=== PATIENT | male | born 1970 | race African-American/Black ===

== ENCOUNTER 2018-05-24 08:47 | Emergency (ER) | payer MEDICAID, OTHER ==
--- NOTE | 2018-05-24 09:34 | ED ---
Abdominal Pain/Male - HPI Summary HPI Summary: Patient is a 47-year-old male who presents emergency department for right upper quadrant abdominal pain times several days. Patient does not recall any specific injuries or falls but states he does do a lot of lifting and twisting at work. He states pain feels like a strained muscle. 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 Patient notes pain is worse with coughing, sitting forward and laughing. He denies recent illness, fever, cough, vomiting, diarrhea, urinary symptoms. He denies past medical history. Symptoms are moderate in severity. - History of Current Complaint Chief Complaint: EDGeneral Stated Complaint: RIGHT FLANK PAIN, TOOTH,HEADACHE Time Seen by Provider: 05/24/18 09:02 Hx Obtained From: Patient Pain Intensity: 2 - Allergies/Home Medications Allergies/Adverse Reactions: Allergies Allergy/AdvReac Type Severity Reaction Status Date / Time No Known Allergies Allergy Verified 05/24/18 08:58 Home Medications: Home Medications NK [No Home Medications Reported] 05/24/18 [History Confirmed 05/24/18] PMH/Surg Hx/FS Hx/Imm Hx Previously Healthy: Yes Infectious Disease History: No Infectious Disease History: Denies: Traveled Outside the [place] in Last 30 Days - Family History Known Family History: Positive: Non-Contributory - Social History Occupation: Employed Full-time Lives: Alone Alcohol Use: Weekly Substance Use Type: Reports: Marijuana Substance Use Comment - Amount & Last Used: daily Smoking Status (MU): Light Every Day Tobacco Smoker Review of Systems Constitutional: Negative Negative: Fever, Chills Cardiovascular: Negative Negative: Palpitations, Chest Pain Respiratory: Negative Negative: Shortness Of Breath, Cough Positive: Abdominal Pain, Nausea. Negative: Vomiting, Diarrhea Genitourinary: Negative Negative: dysuria, flank pain Neurological: Negative All Other Systems Reviewed And Are Negative: Yes Physical Exam Triage Information Reviewed: Yes Vital Signs On Initial Exam: Initial Vitals Temp Pulse Resp BP Pulse Ox 99.1 F 87 16 152/103 96 05/24/18 08:54 05/24/18 08:54 05/24/18 08:54 05/24/18 08:54 05/24/18 08:54 Vital Signs Reviewed: Yes Appearance: Positive: Well-Appearing - Pt. lying in bed in NAD. Skin: Positive: Warm, Dry Head/Face: Positive: Normal Head/Face Inspection Eyes: Positive: Normal, EOMI Neck: Positive: Supple Respiratory/Lung Sounds: Positive: Clear to Auscultation, Breath Sounds Present. Negative: Rales, Rhonchi, Wheezes Cardiovascular: Positive: Normal, RRR Abdomen Description: Positive: Other: - Abd. is soft with marked tenderness to RUQ with positive mckeon sign. No CVA tenderness. Neurological: Positive: Normal, CN Intact II-III Psychiatric: Positive: Affect/Mood Appropriate Diagnostics - Vital Signs Vital Signs Temp Pulse Resp BP Pulse Ox 05/24/18 08:54 99.1 F 87 16 152/103 96 - Laboratory Result Diagrams: 05/24/18 09:46 05/24/18 09:46 Lab Statement: Any lab studies that have been ordered have been reviewed, and results considered in the medical decision making process. Abdominal Pain Male Course/Dx - Course Course Of Treatment: Review with tenderness. Concern for cholelithiasis/ cholecystitis. Basic labs and ultrasound ordered. Patient is given a dose of Toradol for pain. Blood work and urinalysis are unremarkable. Gallbladder ultrasound is negative for acute findings, reading per radiology. On reexamination patient is sleeping comfortably. Results were discussed. Suspect pain is muscular in nature. Advised to apply warm compresses. Recommend 600 mg I Profen 3 times a day times one week. Patient to call the care [facility] clinic to schedule close follow-up and for recheck BP. Return the ER if symptoms change or worsen. Pt. understands and agrees with plan. - Diagnoses Differential Diagnosis/HQI/PQRI: Constipation, Gall Bladder Disease, Peptic Ulcer Disease, Pneumonia, Urinary Tract Infection Provider Diagnoses: Muscle strain, Abdominal pain Discharge - Sign-Out/Discharge Documenting (check all that apply): Patient Departure Patient Received Moderate/Deep Sedation with Procedure: No - Discharge Plan Condition: Improved Disposition: HOME Patient Education Materials: Muscle Strain (ED) Forms: *Work Release Referrals: [facility] [Outside] Additional Instructions: Call the [facility] today for an appointment Take Motrin 600mg every 6 hours as directed for pain Apply warm compresses Return to ER if symptoms change or worsen - Billing Disposition and Condition Condition: IMPROVED Disposition: Home
[2018-05-24] MEDS ORDERED: NS 0.9% 1000 ML** 1,000 ML IV ONE (09:44)
[2018-05-24] MEDS ORDERED: Ketorolac INJ* 30 MG/ML 1 ML VIAL IV PUSH ONE (09:46)
[2018-05-24 09:56] LABS: ABS Basophils 0.1 10^3/ul (0-0.2); ABS Eosinophils 0.2 10^3/ul (0-0.6); ABS Lymphocytes 2.5 10^3/ul (1.0-4.8); ABS Monocytes 0.6 10^3/ul (0-0.8); ABS Neutrophils 2.6 10^3/ul (1.5-7.7); ABS Nucleated RBC 0 10^3/ul; Hematocrit 40 % (42-52); Hemoglobin 13.3 g/dl (14.0-18.0); Lymphocyte % 42.2 %; Mean Corpuscular HGB Conc 33 g/dl (31-36); Mean Corpuscular Hemoglobin 29 pg (27-31); Mean Corpuscular Volume 87 fL (80-94); Nucleated Red Blood Cells % 0.1; Platelet Count 250 10^3/ul (150-450); Red Blood Count 4.59 10^6/ul (4.00-5.40); Red Cell Distribution Width 15 % (10.5-15)
[2018-05-24 10:17] LABS: Albumin 4.3 g/dL (3.2-5.2); Albumin/Globulin Ratio 1.5 (1-3); BUN/Creatinine Ratio 13.5 (8-20); C Reactive Protein 6.43 mg/L (<8.01); Calcium 8.8 mg/dL (8.6-10.3); EGFR African American 93.4 (>60); EGFR Non-African American 77.2 (>60); Globulin 2.9 g/dL (2-4); Total Bilirubin 0.3 mg/dL (0.2-1.0); Total Protein 7.2 g/dL (6.4-8.9)
[2018-05-24 11:53] LABS: Urine Appearance Clear; Urine Bilirubin Negative (Negative); Urine Blood Negative (Negative); Urine Color Straw; Urine Glucose Negative (Negative); Urine Ketones Negative (Negative); Urine Nitrite Negative (Negative); Urine Protein Negative (Negative); Urine Specific Gravity 1.014 (1.010-1.030); Urine Urobilinogen Negative (Negative)
[2018-05-24 12:06] VITALS: BP 149/95
== END 2018-05-24 12:04 | disposition home or self-care (01) ==
LOC: ED 08:47
DX: R10.84 Generalized abdominal pain (principal); T14.8XXA Other injury of unspecified body region, initial encounter; R51 Headache; R11.10 Vomiting, unspecified; F17.210 Nicotine dependence, cigarettes, uncomplicated; X58.XXXA Exposure to other specified factors, initial encounter; Y92.9 Unspecified place or not applicable
CPT/HCPCS: 36415; 76705; 80053; 81003; 83690; 85025; 86140; 96361; 96374; 99282; J1885

== ENCOUNTER 2018-09-20 09:58 | Emergency (ER) | payer OTHER ==
[2018-09-20 10:28] VITALS: BP 153/97
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
[2018-09-20 16:28] LABS: ABS Basophils 0.1 10^3/ul (0-0.2); ABS Eosinophils 0.3 10^3/ul (0-0.6); ABS Lymphocytes 3.3 10^3/ul (1.0-4.8); ABS Monocytes 0.6 10^3/ul (0-0.8); ABS Neutrophils 3.1 10^3/ul (1.5-7.7); Eosinophil % 3.5 %; Hematocrit 39 % (42-52); Hemoglobin 13.3 g/dL (14.0-18.0); Mean Corpuscular HGB Conc 34 g/dL (31-36); Mean Corpuscular Hemoglobin 30 pg (27-31); Mean Corpuscular Volume 88 fL (80-94); Mean Platelet Volume 9.1 fL (7.4-10.4); Nucleated Red Blood Cells % 0.1; Platelet Count 297 10^3/uL (150-450); Red Blood Count 4.49 10^6 /uL (4.18-5.48); Red Cell Distribution Width 15 % (10-15); White Blood Count 7.3 10^3/uL (3.5-10.8)
[2018-09-20 16:38] LABS: Albumin 4.5 g/dL (3.2-5.2); Albumin/Globulin Ratio 1.6 (1-3); BUN/Creatinine Ratio 11.6 (8-20); Calcium 9.5 mg/dL (8.6-10.3); EGFR African American 103.3 (>60); EGFR Non-African American 85.3 (>60); Globulin 2.9 g/dL (2-4); Potassium 4.1 mmol/L (3.5-5.0); Total Bilirubin 0.3 mg/dL (0.2-1.0); Total Protein 7.4 g/dL (6.4-8.9)
== END 2018-09-20 11:51 | disposition home or self-care (01) ==
LOC: UCEAST 09:58
DX: K62.5 Hemorrhage of anus and rectum (principal); F17.210 Nicotine dependence, cigarettes, uncomplicated
CPT/HCPCS: 36415; 80053; 85025; 99211; G0463

== ENCOUNTER 2018-12-23 08:49 | Emergency (ER) | payer OTHER ==
[2018-12-23 08:54] VITALS: BP 123/82
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
== END 2018-12-23 09:39 | disposition home or self-care (01) ==
LOC: ED 08:49
DX: K04.7 Periapical abscess without sinus (principal); I10 Essential (primary) hypertension; F17.210 Nicotine dependence, cigarettes, uncomplicated; Z88.7 Allergy status to serum and vaccine
CPT/HCPCS: 99282

== ENCOUNTER 2018-12-26 12:40 | Emergency (ER) | payer OTHER ==
[2018-12-26 13:04] VITALS: BP 130/85
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
[2018-12-26] MEDS ORDERED: Ketorolac INJ* 30 MG/ML 1 ML VIAL IM ONE (14:02)
[2018-12-26] MEDS ORDERED: Clindamycin CAP* 150 MG PO ONE (14:12)
== END 2018-12-26 14:50 | disposition home or self-care (01) ==
LOC: UCEAST 12:40
DX: S16.1XXA Strain of muscle, fascia and tendon at neck level, initial encounter (principal); W18.39XA Other fall on same level, initial encounter; Y93.51 Activity, roller skating (inline) and skateboarding; Y92.9 Unspecified place or not applicable; Y99.8 Other external cause status; K04.7 Periapical abscess without sinus; F17.210 Nicotine dependence, cigarettes, uncomplicated
CPT/HCPCS: 70450; 70486; 72125; 96372; 99212; A9270-GY; G0463; J1885